=== PATIENT | female | born 1940 | race Caucasian/White ===

== ENCOUNTER → 2017-02-04 | Outpatient (CLI) | payer MEDICARE, BC ==
--- NOTE | 2017-02-04 12:44 | ECHOF ---
Referral Reason:I50.9 Congestive Heart Failure, R60.0 Edema MEASUREMENTS -------- HEIGHT: 165.1 cm WEIGHT: 98.0 kg BP: IVSd: 1.3 cm (0.6 - 1.1) LVIDd: 4.9 cm (3.9 - 5.3) LVPWd: 1.2 cm (0.6 - 1.1) IVSs: 1.4 cm LVIDs: 3.7 cm LVPWs: 1.4 cm LA Diam: 4.1 cm (2.7 - 3.8) LAESV Index (A-L): 20.04 ml/m Ao Diam: 3.0 cm (2.0 - 3.7) AV Cusp: 1.7 cm (1.5 - 2.6) LA Diam: 4.3 cm (2.7 - 3.8) MV EXCURSION: 18.742 mm (> 18.000) MV EF SLOPE: 75 mm/s (70 - 150) EPSS: 0.3 cm MV E Jarad: 0.51 m/s MV A Jarad: 0.91 m/s MV E/A Ratio: 0.55 FINDINGS -------- Sinus rhythm. This was a technically adequate study. There is mild concentric left ventricular hypertrophy. Overall left ventricular systolic function is normal with, an EF between 55 - 60 %. The right ventricle is normal in size. The left atrial size is normal. The right atrial size is normal. There is mild aortic valve sclerosis. There is no evidence of aortic regurgitation. Mild mitral annular calcification present. Mild mitral regurgitation is present. Mild tricuspid regurgitation present. There is no evidence of pulmonary hypertension. The right ventricular systolic pressure, as measured by Doppler, is {RVSP}. There is no pulmonic regurgitation present. The aortic root size is normal. There is no pericardial effusion. CONCLUSIONS -------- 1. Overall left ventricular systolic function is normal with, an EF between 55 - 60 %. 2. Mild mitral annular calcification present. 3. Mild mitral regurgitation is present. 4. Mild tricuspid regurgitation present. 5. There is no evidence of pulmonary hypertension. 6. The right ventricular systolic pressure, as measured by Doppler, is {RVSP}. SAFETY AND SECURITY MANAGER: Hallie Ayala RDCS
== END | disposition home or self-care (01) ==
LOC: RADECHMAIN 08:16
PROVIDERS: ATTEND Internal Medicine
DX: I08.1 Rheumatic disorders of both mitral and tricuspid valves (principal); I50.9 Heart failure, unspecified
CPT/HCPCS: 93306

== ENCOUNTER → 2018-10-28 | Outpatient (CLI) | payer MEDICARE, BC ==
[2018-10-28 08:11] LABS: HCT 41.8 % (34.0-46.0); HGB 13.5 gm/dL (11.4-16.0); MCH 28.8 pg (25.0-35.0); MCHC 32.4 g/dL (31.0-37.0); MCV 88.9 fL (80.0-100.0); Mean Platelet Volume 6.6; Platelet Count 213 k/uL (150-450); RDW 14.5 % (11.5-15.5); WBC 8.7 k/uL (3.8-10.6)
[2018-10-28 08:21] LABS: Albumin 4.2 g/dL (3.5-5.0); Calcium 9.2 mg/dL (8.4-10.2); Potassium 4.3 mmol/L (3.5-5.1); Total Bilirubin 0.8 mg/dL (0.2-1.3); Total Protein 7.3 g/dL (6.3-8.2)
--- NOTE | 2018-10-28 09:26 | BD ---
EXAMINATION TYPE: Axial Bone Density DATE OF EXAM: 10/28/2018 COMPARISON: NONE CLINICAL HISTORY: Height: 5 FT 3 IN Weight: 210 FRAX RISK QUESTIONS: RISK FACTORS HISTORY OF: Surgery to Spine/Hip(right/left)/Wrist (right/left): NEHEMIAH HIP REPLACEMENTS When: APPROX 4/5 YEARS AGO Active: YES Postmenopausal woman: AGE 49 Lost more than 2 inches in height since high school: YES MEDICATIONS: Additional Medications: LASIX, TOVIAZ Additional History: EXAM MEASUREMENTS: Bone mineral densitometry was performed using the Aereo System. Bone mineral density as measured about the Lumbar spine is: ----- L1-L4(G/cm2): 1.421 T Score Values are as follows: ----- L2: 1.7 ----- L3: 2.6 ----- L4: 3.9 ----- L1-L4: 2.0 Bone mineral density has: INCREASED 9.1 % since study of: 2012 mineral density has: % since study of: Bone mineral density about the L Wrist (g/cm2): 0.681 T Score values are as follows: -----Dist. R+U: 0.3 -----Prox. R+U: 0.1 -----Radius total: 0.1 NO COMPARISON STUDY IMPRESSION: Normal (Values between +1 and -1 indicate normal bone mass). Consider repeating this study in 5 year s or sooner if there is some new clinical indication. NOTE: T-SCORE=SD OF THE YOUNG ADULT MEAN.
--- NOTE | 2018-10-29 10:05 | MM ---
Reason for exam: screening (asymptomatic). Last mammogram was performed 5 years and 4 months ago. History: Patient is postmenopausal. Physical Findings: A clinical breast exam by your physician is recommended on an annual basis and results should be correlated with mammographic findings. MG Screening Mammo w CAD Bilateral CC and MLO view(s) were taken. Prior study comparison: July 07, 2013, bilateral digital screening mammo w/CAD. May 26, 2012, bilateral digital screening mammo w/CAD. There are scattered fibroglandular densities. There is no discrete abnormality. No significant changes when compared with prior studies. ASSESSMENT: Negative, BI-RAD 1 RECOMMENDATION: Routine screening mammogram of both breasts in 1 year.
== END ==
LOC: RADMAMWWP 06:57
PROVIDERS: ATTEND Internal Medicine
DX: Z12.31 Encounter for screening mammogram for malignant neoplasm of breast (principal); Z78.0 Asymptomatic menopausal state
CPT/HCPCS: 77067; 77080; 80053; 80061; 84443; 85027

== ENCOUNTER → 2019-01-20 | Outpatient (CLI) | payer MEDICARE, BC ==
[~2019-01-20] MED LIST: DOBUTamine DRIP for NUC MED 500 MG in DEXTROSE/WATER 1 250ML.BAG IV ONE
--- NOTE | 2019-01-20 13:03 | P.STRESS ---
- Stress Test Note Stress Test Results/Findings: Exam Performed: dobutamine stress echo Exam Date: 01/20/19 Reason for Exam: SOB / VALVE DISORDER Height: 5 ft 6 in Weight: 95.254 kg Protocol: DSE Stage: 3 Duration of Exercise: 7:45 Resting Heart Rate: 63 Resting Blood Pressure: 110/57 Maximum Achieved Heart Rate: 126 Maximum Achieved Blood Pressure: 139/52 85% PMHR: 122 100% PMHR: 143 METS: NA Technologist Comment: Stress Test Results/Findings: This is a 78-year-old female with history of diabetes and hypercholesterolemia being evaluated for cardiac status. Stress data: Baseline EKG showed sinus rhythm with a normal FL interval and QRS duration. Blood pressure at rest is 110/57 with pulse rate of 63. Patient walked on the Luis Alfredo protocol for 7 minutes and 45 seconds achieving a maximal heart rate of 126 with a blood pressure of 97/43. EKGs taken during exercise showed about [address] segments in the inferolateral leads. Patient had occasional PVCs. Patient did not experience any chest pain. Echo data: Baseline echo images show normal wall motion and thickening. Exercise echo images with a dobutamine showed progressive augmentation of wall motion and thickening. Final impression: #1. Borderline positive stress test, based on EKG changes. Patient did not express any chest pain #2. Negative dobutamine stress echo
--- NOTE | 2019-01-21 09:24 | ECHOS ---
Stress Test Results/Findings: Exam Performed: dobutamine stress echo Exam Date: 01/20/19 Reason for Exam: SOB / VALVE DISORDER Height: 5 ft 6 in Weight: 95.254 kg Protocol: DSE Stage: 3 Duration of Exercise: 7:45 Resting Heart Rate: 63 Resting Blood Pressure: 110/57 Maximum Achieved Heart Rate: 126 Maximum Achieved Blood Pressure: 139/52 85% PMHR: 122 100% PMHR: 143 METS: NA Technologist Comment: Stress Test Results/Findings: This is a 78-year-old female with history of diabetes and hypercholesterolemia being evaluated for cardiac status. Stress data: Baseline EKG showed sinus rhythm with a normal [place] interval and QRS duration. Blood pressure at rest is 110/57 with pulse rate of 63. Patient walked on the Luis Alfredo protocol for 7 minutes and 45 seconds achieving a maximal heart rate of 126 with a blood pressure of 97/43. EKGs taken during exercise showed about [address] segments in the inferolateral leads. Patient had occasional PVCs. Patient did not experience any chest pain. Echo data: Baseline echo images show normal wall motion and thickening. Exercise echo images with a dobutamine showed progressive augmentation of wall motion and thickening. Final impression: #1. Borderline positive stress test, based on EKG changes. Patient did not express any chest pain #2. Negative dobutamine stress echo MTDD
== END | disposition home or self-care (01) ==
LOC: RADNMMAIN 08:47
PROVIDERS: ATTEND Internal Medicine
DX: I35.8 Other nonrheumatic aortic valve disorders (principal); I50.9 Heart failure, unspecified
CPT/HCPCS: 93351; J1250

== ENCOUNTER 2021-07-19 21:43 | Emergency (ER) | payer MEDICARE, BC ==
[2021-07-19] MEDS ORDERED: SODIUM CHLORIDE 0.9% 1,000 ML IV STA (22:48)
--- NOTE | 2021-07-19 22:49 | ED ---
Recheck HPI - General Chief Complaint: Recheck/Abnormal Lab/Rx Stated Complaint: Irregular lab-Sent in by Dr. Molina Time Seen by Provider: 07/19/21 22:48 Source: patient, RN notes reviewed, old records reviewed Mode of arrival: ambulatory Limitations: no limitations - History of Present Illness Initial Comments: This is a 80-year-old female to the emergency department today. Patient presents today for evaluation regards to abnormal outpatient lab value. Patient was told her troponin was elevated. Patient is asymptomatic, lab values were found on routine lab testing on checkup exam. Again patient has no complaints. A she just has a history of high blood pressure no history of heart disease MD Complaint: abnormal lab (Elevated troponin) -: unknown Returns Today for: Called Because of Abnormal Lab/Test Symptoms Since Prior Visit: no new symptoms Context: called for abnormal lab result Associated Symptoms: none Treatments Prior to Arrival: other (none) - Related Data Home Medications Medication Instructions Recorded Confirmed Fesoterodine Fumarate [Toviaz] 8 mg PO DAILY 02/27/14 07/19/21 Furosemide [Lasix] 20 mg PO DAILY 07/19/21 07/19/21 Allergies Allergy/AdvReac Type Severity Reaction Status Date / Time No Known Allergies Allergy Verified 07/19/21 23:34 Review of Systems ROS Statement: Those systems with pertinent positive or pertinent negative responses have been documented in the HPI. ROS Other: All systems not noted in ROS Statement are negative. Past Medical History Past Medical History: Hyperlipidemia, Osteoarthritis (OA) Additional Past Medical History / Comment(s): OAB History of Any Multi-Drug Resistant Organisms: MRSA Date of last positivie culture/infection: 2015 MDRO Source:: R leg Past Surgical History: Joint Replacement Additional Past Surgical History / Comment(s): fallopian tube surg., Right & Lef t hip replaced Past Anesthesia/Blood Transfusion Reactions: Postoperative Nausea & Vomiting (PONV) Past Psychological History: No Psychological Hx Reported Smoking Status: Never smoker Past Alcohol Use History: None Reported Past Drug Use History: None Reported - Past Family History Mother Family Medical History: Cancer Additional Family Medical History / Comment(s): lung Father Family Medical History: Cancer Additional Family Medical History / Comment(s): liver General Exam Limitations: no limitations General appearance: alert, in no apparent distress Head exam: Present: atraumatic, normocephalic, normal inspection Eye exam: Present: normal appearance, PERRL, EOMI. Absent: scleral icterus, conjunctival injection, periorbital swelling ENT exam: Present: normal exam, mucous membranes moist Neck exam: Present: normal inspection. Absent: tenderness, meningismus, lymphadenopathy Respiratory exam: Present: normal lung sounds bilaterally. Absent: respiratory distress, wheezes, rales, rhonchi, stridor Cardiovascular Exam: Present: regular rate, normal rhythm, normal heart sounds. Absent: systolic murmur, diastolic murmur, rubs, gallop, clicks GI/Abdominal exam: Present: soft, normal bowel sounds. Absent: distended, tenderness, guarding, rebound, rigid Extremities exam: Present: normal inspection, full ROM, normal capillary refill. Absent: tenderness, pedal edema, joint swelling, calf tenderness Back exam: Present: normal inspection Neurological exam: Present: alert, oriented X3, CN II-XII intact Psychiatric exam: Present: normal affect, normal mood Skin exam: Present: warm, dry, intact, normal color. Absent: rash Course Vital Signs 07/19/21 07/19/21 22:05 23:42 Temperature 98.6 F Pulse Rate 84 87 Respiratory 18 16 Rate Blood Pressure 175/88 167/83 O2 Sat by Pulse 96 96 Oximetry - Reevaluation(s) Reevaluation #1: 07/20/21 01:09 Medical record is reviewed Reevaluation #2: 07/20/21 01:09 Patient poor informed of improving her normalizing lab value Reevaluation #3: 07/20/21 01:09 Patient remains asymptomatic with no chest pain. Reevaluation #4: 07/20/21 01:09 Patient will prefer discharged home Medical Decision Making - Medical Decision Making 80 female to evaluate elevated troponin patient report is normal here in the emergency department was not certainly elevated on the outpatient basis patient is a symptomatically no chest pain. This was routine lab work and patient can be discharged home - Lab Data Result diagrams: 07/19/21 22:56 07/19/21 22:56 Lab Results 07/19/21 07/19/21 07/19/21 Range/Units 22:56 22:56 22:56 WBC 8.3 (3.8-10.6) k/uL RBC 4.80 (3.80-5.40) m/uL Hgb 13.5 (11.4-16.0) gm/dL Hct 42.5 (34.0-46.0) % MCV 88.6 (80.0-100.0) fL MCH 28.1 (25.0-35.0) pg MCHC 31.7 (31.0-37.0) g/dL RDW 14.2 (11.5-15.5) % Plt Count 209 (150-450) k/uL MPV 7.2 Neutrophils % 69 % Lymphocytes % 20 % Monocytes % 5 % Eosinophils % 4 % Basophils % 1 % Neutrophils # 5.8 (1.3-7.7) k/uL Lymphocytes # 1.7 (1.0-4.8) k/uL Monocytes # 0.4 (0-1.0) k/uL Eosinophils # 0.3 (0-0.7) k/uL Basophils # 0.1 (0-0.2) k/uL PT 9.6 (9.0-12.0) sec INR 0.9 (<1.2) APTT 22.5 (22.0-30.0) sec Sodium 136 L (137-145) mmol/L Potassium 4.1 (3.5-5.1) mmol/L Chloride 105 (98-107) mmol/L Carbon Dioxide 23 (22-30) mmol/L Anion Gap 8 mmol/L BUN 16 (7-17) mg/dL Creatinine 0.59 (0.52-1.04) mg/dL Est GFR (CKD-EPI)AfAm >90 (>60 ml/min/1.73 sqM) Est GFR (CKD-EPI)NonAf 88 (>60 ml/min/1.73 sqM) Glucose 138 H (74-99) mg/dL Calcium 9.4 (8.4-10.2) mg/dL Magnesium 2.1 (1.6-2.3) mg/dL Total Bilirubin 0.4 (0.2-1.3) mg/dL AST 24 (14-36) U/L ALT 14 (4-34) U/L Alkaline Phosphatase 144 H (38-126) U/L Troponin I (0.000-0.034) ng/mL NT-Pro-B Natriuret Pep pg/mL Total Protein 7.3 (6.3-8.2) g/dL Albumin 4.1 (3.5-5.0) g/dL Lipase 81 (23-300) U/L 07/19/21 07/19/21 Range/Units 22:56 22:56 WBC (3.8-10.6) k/uL RBC (3.80-5.40) m/uL Hgb (11.4-16.0) gm/dL Hct (34.0-46.0) % MCV (80.0-100.0) fL MCH (25.0-35.0) pg MCHC (31.0-37.0) g/dL RDW (11.5-15.5) % Plt Count (150-450) k/uL MPV Neutrophils % % Lymphocytes % % Monocytes % % Eosinophils % % Basophils % % Neutrophils # (1.3-7.7) k/uL Lymphocytes # (1.0-4.8) k/uL Monocytes # (0-1.0) k/uL Eosinophils # (0-0.7) k/uL Basophils # (0-0.2) k/uL PT (9.0-12.0) sec INR (<1.2) APTT (22.0-30.0) sec Sodium (137-145) mmol/L Potassium (3.5-5.1) mmol/L Chloride (98-107) mmol/L Carbon Dioxide (22-30) mmol/L Anion Gap mmol/L BUN (7-17) mg/dL Creatinine (0.52-1.04) mg/dL Est GFR (CKD-EPI)AfAm (>60 ml/min/1.73 sqM) Est GFR (CKD-EPI)NonAf (>60 ml/min/1.73 sqM) Glucose (74-99) mg/dL Calcium (8.4-10.2) mg/dL Magnesium (1.6-2.3) mg/dL Total Bilirubin (0.2-1.3) mg/dL AST (14-36) U/L ALT (4-34) U/L Alkaline Phosphatase (38-126) U/L Troponin I 0.025 (0.000-0.034) ng/mL NT-Pro-B Natriuret Pep 95 pg/mL Total Protein (6.3-8.2) g/dL Albumin (3.5-5.0) g/dL Lipase (23-300) U/L - EKG Data -: EKG Interpreted by Me (EKG shows sinus rhythm 76 AR 178 QRS 86 QTc 460) - Radiology Data Radiology results: report reviewed (Chest x-rays negative for acute disease), image reviewed Disposition Clinical Impression: Normal exam Disposition: HOME SELF-CARE Condition: Good Instructions (If sedation given, give patient instructions): Normal Exam (ED) Is patient prescribed a controlled substance at d/c from ED?: No Referrals: Rosa Molina MD [Primary Care Provider] - 1-2 days
--- NOTE | 2021-07-19 23:16 | XR ---
EXAMINATION TYPE: XR chest 1V portable DATE OF EXAM: 07/19/2021 COMPARISON: 03/02/2014 HISTORY: Chest pain TECHNIQUE: Single view FINDINGS: There is no heart failure nor confluent pneumonic infiltrate. Costophrenic angles are clear . There are chest leads. Bony thorax is intact. IMPRESSION: No active cardiopulmonary disease. No adverse change
[2021-07-19 23:40] LABS: Basophils # (A) 0.1 k/uL (0-0.2); Basophils % (A) 1 %; Eosinophils # (A) 0.3 k/uL (0-0.7); Eosinophils % (A) 4 %; HCT 42.5 % (34.0-46.0); HGB 13.5 gm/dL (11.4-16.0); Lymphocytes # (A) 1.7 k/uL (1.0-4.8); Lymphocytes % (A) 20 %; MCH 28.1 pg (25.0-35.0); MCHC 31.7 g/dL (31.0-37.0); MCV 88.6 fL (80.0-100.0); Mean Platelet Volume 7.2; Monocytes # (A) 0.4 k/uL (0-1.0); Monocytes % (A) 5 %; Neutrophils # (A) 5.8 k/uL (1.3-7.7); Neutrophils % (A) 69 %; Platelet Count 209 k/uL (150-450); RDW 14.2 % (11.5-15.5); WBC 8.3 k/uL (3.8-10.6)
[2021-07-19 23:44] LABS: INR 0.9 (<1.2); Partial Thromboplastin Time 22.5 sec (22.0-30.0); Prothrombin Time 9.6 sec (9.0-12.0)
[2021-07-20 00:04] LABS: ALT 14 U/L (4-34); AST 24 U/L (14-36); African American GFR (CKD) >90 (>60 ml/min/1.73 sqM); Albumin 4.1 g/dL (3.5-5.0); Alkaline Phosphatase 144 U/L (38-126); Anion Gap 8 mmol/L; Blood Urea Nitrogen 16 mg/dL (7-17); Calcium 9.4 mg/dL (8.4-10.2); Carbon Dioxide 23 mmol/L (22-30); Chloride 105 mmol/L (98-107); Glucose 138 mg/dL (74-99); Lipase 81 U/L (23-300); Magnesium 2.1 mg/dL (1.6-2.3); Non-African American GFR(CKD) 88 (>60 ml/min/1.73 sqM); Potassium 4.1 mmol/L (3.5-5.1); Sodium 136 mmol/L (137-145); Total Bilirubin 0.4 mg/dL (0.2-1.3); Total Protein 7.3 g/dL (6.3-8.2)
[2021-07-20 04:54] VITALS: BP 178/90; PULSE 76; RESP 18; TEMP 98
== END 2021-07-20 01:43 | disposition home or self-care (01) ==
LOC: EC 21:43
DX: Z00.00 Encounter for general adult medical examination without abnormal findings (principal); E78.5 Hyperlipidemia, unspecified; M19.90 Unspecified osteoarthritis, unspecified site; Z79.899 Other long term (current) drug therapy
CPT/HCPCS: 36415; 71045; 80053; 83690; 83735; 83880; 84484; 85025; 85610; 85730; 93005; 96360; 96361; 99284

== ENCOUNTER → 2021-07-22 | Outpatient (CLI) | payer MEDICARE, BC ==
--- NOTE | 2021-07-23 03:54 | MR ---
EXAMINATION TYPE: MR angio head wo/neck wo/w con DATE OF EXAM: 07/22/2021 COMPARISON: None HISTORY: Abnormal CT scan. CONTRAST: Standard multiplanar, multisequence MRI departmental protocol utilizing 9.5 mL intravenous gadolinium contrast. MR angiographic images were obtained of the brain. There is arterial flow in the anterior middle and posterior cerebral arteries bilaterally. There is n o mass effect. There is some short segment stenosis in the proximal right middle cerebral artery. The re is probably 50% luminal narrowing. There is arterial flow in the vertebrobasilar artery system. Th ere is bilateral arterial flow in the posterior communicating arteries. Posterior cerebral arteries a ppear to fill mostly through the posterior communicating arteries. I see no evidence of intracranial aneurysm. There is no evidence of neovascularity. There is arterial flow in both common carotid arteries. There is subtotal occlusion of the proximal l eft external carotid artery. There is approximate 50% stenosis of the origin of the right external ca rotid artery. There is normal branching pattern of the great vessels on the aortic arch. I see no yo dence of hemodynamic stenosis of the internal carotid arteries. There is bilateral arterial flow in t he vertebral arteries. No evidence of any significant stenosis. 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 There is more than 50% stenosis origin of the right external carotid artery. There is focal stenosis in the right middle cerebral artery of approximately 50%.
--- NOTE | 2021-07-23 04:21 | MR ---
EXAMINATION TYPE: MR brain wo con DATE OF EXAM: 07/22/2021 COMPARISON: None HISTORY: Weakness Multiplanar multiecho imaging of the brain without contrast. There is cerebral cortical atrophy. There is no mass effect nor midline shift. There is no sign of in tracranial hemorrhage. There are multiple scattered white matter high signal foci of increased signal on the T2 and FLAIR images in both cerebral hemispheres. Total number is approximately 15. The large st measures 7 mm in the oleary-white matter junction left parietal lobe. There are multiple somewhat co alescent small foci in the anterior right internal capsule. Ventricles are not enlarged. The brainste m shows small areas of slight increased signal in the urban measuring up to 4 mm. Cerebellum is intact . Corpus callosum is intact. Sella turcica is normal. There is no evidence of orbital mass. Diffusion images do not show evidence of an acute infarct. IMPRESSION: Multiple white matter high signal foci as above could relate to chronic small vessel ischemia or demy elinating disease. No evidence of an acute infarct. No evidence of cerebral cortical infarct.
== END | disposition home or self-care (01) ==
LOC: RADMRIMAIN 21:09
PROVIDERS: ATTEND Family Medicine
DX: I65.23 Occlusion and stenosis of bilateral carotid arteries (principal); I66.01 Occlusion and stenosis of right middle cerebral artery; R93.0 Abnormal findings on diagnostic imaging of skull and head, not elsewhere classified
CPT/HCPCS: 70544; 70549; 70551; A9585

== ENCOUNTER → 2021-07-22 | Outpatient (CLI) | payer MEDICARE, BC ==
--- NOTE | 2021-07-22 08:30 | CT ---
EXAMINATION TYPE: CT brain wo con DATE OF EXAM: 07/22/2021 COMPARISON: None INDICATION: Lt Hand numbness tingling DLP: 1036.00 mGycm, Automated exposure control for dose reduction was used. CONTRAST: None CT of the brain is performed utilizing 3 mm thick sections through the posterior fossa and 3 mm thick sections through the remaining calvarium. Study is performed within 24 hours of arrival to the hosp ital. No abnormal hyperdensity is present to suggest an acute intracranial hemorrhage. No mass lesion is evident. There is some subtle anterior internal capsule and right basal ganglia hypodensity could be a develop ing lacunar infarct. Some subtle hypodensity may be within the anterior left basal ganglia as well. M ild mass effect on the anterior horn right lateral ventricle is not excluded. Ventricles and sulci are appropriate for the patient age. Paranasal sinuses and mastoid air cells within the [id number] are clear. Hyperostosis frontalis internus, normal variant, is present. IMPRESSIONS: 1. There is a hypodensity within the right anterior internal limb of the basal ganglia. Developing lacunar infarct could be considered. Consider MRI without contrast for additional evaluation. 2. Some subtle hypodensity may be present within the anterior lateral left basal ganglia.
--- NOTE | 2021-07-22 08:40 | US ---
EXAMINATION TYPE: US carotid duplex BILAT DATE OF EXAM: 07/22/2021 COMPARISON: NONE CLINICAL HISTORY: R09.89 Bruit. EXAM MEASUREMENTS: RIGHT: Peak Systolic Velocity (PSV) cm/sec ----- Right CCA: 118.6 ----- Right ICA: 120.0 ----- Right ECA: 224.7 ICA/CCA ratio: 1.0 RIGHT: End Diastole cm/sec ----- Right CCA: 35.7 ----- Right ICA: 34.3 ----- Right ECA: 21.2 LEFT: Peak Systolic Velocity (PSV) cm/sec ----- Left CCA: 88.7 ----- Left ICA: 75.5 ----- Left ECA: 99.5 ICA/CCA ratio: 0.9 LEFT: End Diastole cm/sec ----- Left CCA: 26.0 ----- Left ICA: 28.2 ----- Left ECA: 0.0 VERTEBRALS (direction of flow): Right Vertebral: Antegrade Left Vertebral: Antegrade Rhythm: Arrhythmia, on the right side. Grayscale, color Doppler, spectral Doppler imaging performed the carotid arteries. Waveform analysis does not show significant stenosis of the internal carotid arteries, mild elevation of the peak systo lic velocity is noted in the internal carotid artery in the left without elevated ICA to CCA ratio. E levated right ECA, tortuous left ICA. No significant stenosis. IMPRESSION: Mild elevation of the peak systolic velocity within the proximal internal carotid artery in the left not felt likely to represent hemodynamic significant stenosis by Doppler criteria, an in direct measurement of carotid stenosis. CTA or MRA of the carotid arteries could be performed for add itional evaluation as indicated Criteria for Assigning % of Stenosis / Diameter reduction (Estimation based on the indirect measurements of the internal carotid artery velocities (ICA PSV). 1. Normal (no stenosis)=ICA PSV < 125 cm/s: ratio < 2.0: ICA EDV<40 cm/s. 2. Less than 50% stenosis=ICA PSV < 125 cm/s: ratio < 2.0: ICA EDV<40 cm/s. 3. 50 to 69% stenosis=ICA PSV of 125 to 230 cm/s: ration 2.0 ? 4.0: ICA EDV 40-100 cm/s. 4. Greater than 70% stenosis to near occlusion= ICA PSV > 230 cm/s: ratio > 4.0: ICA EDV > 100 cm/s. 5. Near occlusion= ICA PSV velocities may be low or undetectable: variable ratio and ICA EDV. 6. Total occlusion=unable to detect flow.
== END | disposition home or self-care (01) ==
LOC: RADCTMAIN 07:05
PROVIDERS: ATTEND Family Medicine
DX: R09.89 Other specified symptoms and signs involving the circulatory and respiratory systems (principal); R93.0 Abnormal findings on diagnostic imaging of skull and head, not elsewhere classified
CPT/HCPCS: 70450; 93880

== ENCOUNTER → 2021-09-12 | Outpatient (CLI) | payer MEDICARE, BC ==
--- NOTE | 2021-09-13 12:38 | MM ---
Reason for exam: screening (asymptomatic). Last mammogram was performed 2 years and 11 months ago. History: Patient is postmenopausal and history of other cancer. Physical Findings: A clinical breast exam by your physician is recommended on an annual basis and results should be correlated with mammographic findings. MG 3D Screening Mammo W/Cad Bilateral CC and MLO view(s) were taken. Prior study comparison: October 28, 2018, bilateral MG screening mammo w CAD. There are scattered fibroglandular densities. There are benign appearing round vascular calcifications bilaterally. There is no discrete abnormality. ASSESSMENT: Benign, BI-RAD 2 RECOMMENDATION: Routine screening mammogram of both breasts in 1 year.
== END | disposition home or self-care (01) ==
LOC: RADMAMWWP 09:13
PROVIDERS: ATTEND Family Medicine
DX: Z12.31 Encounter for screening mammogram for malignant neoplasm of breast (principal); Z78.0 Asymptomatic menopausal state
CPT/HCPCS: 77063; 77067

== ENCOUNTER 2021-09-16 23:13 | Emergency (ER) | payer MEDICARE, BC ==
[2021-09-17] MEDS ORDERED: SODIUM CHLORIDE 0.9% 50 ML IVPB ONE (00:45)
[2021-09-17 00:51] VITALS: RESP 18
[2021-09-17] MEDS ORDERED: BAMLANIVIMAB (EUA) 700 MG, ETESEVIMAB (EUA) 1,400 MG in SODIUM CHLORIDE 0.9% 50 ML IVPB ONE (01:00)
--- NOTE | 2021-09-17 02:03 | ED ---
General Adult HPI - General Chief complaint: Upper Respiratory Infection Stated complaint: covid exposure Time Seen by Provider: 09/17/21 00:33 Source: patient Mode of arrival: ambulatory Limitations: no limitations - History of Present Illness Initial comments: 80-year-old female patient presented to the emergency department today requesting test for COVID-19. States that her has tested positive and is hospitalized that she wanted to be tested. States she feels well. She has been vaccinated and did receive a booster at the beginning of this month. Patient denies any recent rash, fever, chills, cough, shortness of breath, chest pain, abdominal pain, nausea, vomiting, diarrhea, constipation, back pain, numbness, tingling, dizziness, weakness, hematuria, dysuria, urinary urgency, urinary frequency, headache, visual changes, or any other complaints. - Related Data Home Medications Medication Instructions Recorded Confirmed Fesoterodine Fumarate [Toviaz] 8 mg PO DAILY 02/27/14 07/19/21 Furosemide [Lasix] 20 mg PO DAILY 07/19/21 07/19/21 Allergies Allergy/AdvReac Type Severity Reaction Status Date / Time No Known Allergies Allergy Verified 09/16/21 23:19 Review of Systems ROS Statement: Those systems with pertinent positive or pertinent negative responses have been documented in the HPI. ROS Other: All systems not noted in ROS Statement are negative. Past Medical History Past Medical History: Hyperlipidemia, Osteoarthritis (OA) Additional Past Medical History / Comment(s): OAB History of Any Multi-Drug Resistant Organisms: MRSA Date of last positivie culture/infection: 2015 MDRO Source:: R leg Past Surgical History: Joint Replacement Additional Past Surgical History / Comment(s): fallopian tube surg., Right & Left hip replaced Past Anesthesia/Blood Transfusion Reactions: Postoperative Nausea & Vomiting (PONV) Past Psychological History: No Psychological Hx Reported Smoking Status: Never smoker Past Alcohol Use History: None Reported Past Drug Use History: None Reported - Past Family History Mother Family Medical History: Cancer Additional Family Medical History / Comment(s): lung Father Family Medical History: Cancer Additional Family Medical History / Comment(s): liver General Exam Limitations: no limitations General appearance: alert, in no apparent distress, other (This is a well- developed, well-nourished adult female in no acute distress.) Respiratory exam: Present: normal lung sounds bilaterally. Absent: respiratory distress, wheezes, rales, rhonchi, stridor Cardiovascular Exam: Present: regular rate, normal rhythm, normal heart sounds. Absent: systolic murmur, diastolic murmur, rubs, gallop, clicks GI/Abdominal exam: Present: soft, normal bowel sounds. Absent: distended, tenderness, guarding, rebound, rigid Neurological exam: Present: alert, oriented X3, CN II-XII intact Psychiatric exam: Present: normal affect, normal mood Skin exam: Present: warm, dry, intact, normal color. Absent: rash Course Vital Signs 09/16/21 09/17/21 09/17/21 23:19 00:48 02:46 Temperature 98.3 F 97.4 F L Pulse Rate 73 65 Respiratory 20 18 18 Rate Blood Pressure 180/81 151/87 O2 Sat by Pulse 97 97 Oximetry Medical Decision Making - Medical Decision Making 80-year-old female patient presented for COVID-19 test due to exposure. She is not having any symptoms. She did test positive. She did meet criteria to receive monoclonal antibodies. She agrees to receive this medication she tolerated without difficulty. She'll be discharged. The primary care physician for recheck in 1-2 days. Return parameters were discussed in detail. She verbalizes understanding and agrees with this plan. My attending is Dr. Justice. - Lab Data Lab Results 09/16/21 Range/Units 23:25 Coronavirus (PCR) Detected A (Not Detectd) Disposition Clinical Impression: COVID-19 Disposition: HOME SELF-CARE Condition: Good Instructions (If sedation given, give patient instructions): Coronavirus Disease 2019 (COVID-19) Additional Instructions: Tips to help you feel better: -Maintain adequate fluid intake - especially water. -Rest, you are healing your body will require extra sleep. -Eat even if you do not feel like it - broth, jello, toast are fine if you cannot eat full meals. -Take tylenol and motrin alternating (if you have no allergies or have not been instructed to avoid these medications) to help with body aches and fevers. -Obtain over the counter vitamin C, zinc, and vitamin D3. -Take medications as prescribed. Follow-up with your primary care physician for recheck in 1-2 days. Return for any new, worsening, or concerning symptoms. Is patient prescribed a controlled substance at d/c from ED?: No Referrals: Rosa Molina MD [Primary Care Provider] - 1-2 days Time of Disposition: 02:30
[2021-09-17] MEDS ORDERED: HYDROcodone/APAP 5-325MG 1 EACH TAB PO STA (02:21)
[2021-09-17 02:48] VITALS: BP 151/87; PULSE 65; TEMP 97.4
== END 2021-09-17 02:47 | disposition home or self-care (01) ==
LOC: EC 23:13
DX: U07.1 COVID-19 (principal); E78.5 Hyperlipidemia, unspecified; M19.90 Unspecified osteoarthritis, unspecified site
CPT/HCPCS: 87635; 99282; 96360; J3490

== ENCOUNTER → 2022-06-27 | Outpatient (CLI) | payer MEDICARE, BC ==
--- NOTE | 2022-06-27 11:40 | US ---
EXAMINATION TYPE: US carotid duplex BILAT DATE OF EXAM: 06/27/2022 COMPARISON: NONE CLINICAL HISTORY: I65.23 bilateral carotid artery stenosis. stenosis TECHNIQUE: Carotid duplex ultrasound examination. Indirect Doppler criteria was utilized. FINDINGS: EXAM MEASUREMENTS: RIGHT: Peak Systolic Velocity (PSV) cm/sec ----- Right CCA: 124 ----- Right ICA: 125 ----- Right ECA: 275 ICA/CCA ratio: 1.01 RIGHT: End Diastole cm/sec ----- Right CCA: 27.3 ----- Right ICA: 27.9 ----- Right ECA: 11.5 LEFT: Peak Systolic Velocity (PSV) cm/sec ----- Left CCA: 87.7 ----- Left ICA: 141 ----- Left ECA: 127 ICA/CCA ratio: 1.61 LEFT: End Diastole cm/sec ----- Left CCA: 15.1 ----- Left ICA: 35.9 ----- Left ECA: 0.0 VERTEBRALS (direction of flow): Right Vertebral: Antegrade Left Vertebral: Antegrade SPEECH PROFESSOR NOTES: Moderate plaque bilateral bifurcations. Increased velocities right ECA. Tortuous l eft ICA IMPRESSION: No evidence for hemodynamically significant stenosis Criteria for Assigning % of Stenosis / Diameter reduction (Estimation based on the indirect measurements of the internal carotid artery velocities (ICA PSV). 1. Normal (no stenosis)=ICA PSV < 125 cm/s: ratio < 2.0: ICA EDV<40 cm/s. 2. Less than 50% stenosis=ICA PSV < 125 cm/s: ratio < 2.0: ICA EDV<40 cm/s. 3. 50 to 69% stenosis=ICA PSV of 125 to 230 cm/s: ration 2.0 ? 4.0: ICA EDV 40-100 cm/s. 4. Greater than 70% stenosis to near occlusion= ICA PSV > 230 cm/s: ratio > 4.0: ICA EDV > 100 cm/s. 5. Near occlusion= ICA PSV velocities may be low or undetectable: variable ratio and ICA EDV. 6. Total occlusion=unable to detect flow.
[2022-06-27 11:43] LABS: Basophils % (A) 1 %; Eosinophils # (A) 0.2 k/uL (0-0.7); Eosinophils % (A) 3 %; HCT 39.8 % (34.0-46.0); HGB 12.7 gm/dL (11.4-16.0); Hypochromasia Moderate; Lymphocytes # (A) 1.4 k/uL (1.0-4.8); Lymphocytes % (A) 21 %; MCH 28.2 pg (25.0-35.0); MCHC 31.8 g/dL (31.0-37.0); MCV 88.7 fL (80.0-100.0); Monocytes # (A) 0.3 k/uL (0-1.0); Monocytes % (A) 5 %; Neutrophils # (A) 4.6 k/uL (1.3-7.7); Neutrophils % (A) 70 %; Platelet Count 204 k/uL (150-450); RBC 4.48 m/uL (3.80-5.40); RDW 14.6 % (11.5-15.5); WBC 6.5 k/uL (3.8-10.6)
[2022-06-27 17:47] LABS: Protein, Total 6.3 g/dL (6.2-8.2)
[2022-06-27 18:16] LABS: ALT 24 U/L (8-44); AST 18 U/L (13-35); Albumin 4.1 g/dL (3.8-4.9); Albumin/Globulin Ratio 1.95 (1.60-3.17); Alkaline Phosphatase 121 U/L (41-126); BUN/Creat Ratio 13.89 Ratio (12.00-20.00); Blood Urea Nitrogen 12.5 mg/dL (9.0-27.0); Calcium 9.1 mg/dL (8.7-10.3); Carbon Dioxide 28.7 mmol/L (20.0-27.5); Chloride 104 mmol/L (96-109); Globulin 2.1 g/dL (1.6-3.3); Glucose 110 mg/dL (70-110); Iron 49 ug/dL (50-170); Non-African American GFR(CKD) 60.4 (60.0-200.0); Potassium 4.8 mmol/L (3.5-5.5); Sodium 141 mmol/L (135-145); Total Protein 6.2 g/dL (6.2-8.2)
[2022-06-27 18:17] LABS: % Iron Saturation 14.68 (12.00-45.00); Chol/HDL Ratio 3.73 Ratio; LDL Cholesterol,Calculated 103.8 mg/dL (0.0-131.0); Total Iron Binding Capacity 332 ug/dL (228-460); VLDL Calculation 17.74 mg/dL (5.00-40.00)
[2022-06-30 12:02] LABS: Albumin 3.62 g/dL (3.80-4.90); Gamma Globulin 0.72 g/dL (0.70-1.50)
== END | disposition home or self-care (01) ==
LOC: RADUSWWP 10:45
PROVIDERS: ATTEND Internal Medicine
DX: I65.23 Occlusion and stenosis of bilateral carotid arteries (principal)
CPT/HCPCS: 80053; 80061; 82607; 82746; 83540; 83550; 84165; 84443; 85025; 93880

== ENCOUNTER → 2022-12-19 | Outpatient (CLI) | payer MEDICARE, BC ==
--- NOTE | 2022-12-19 14:28 | CT ---
EXAMINATION TYPE: CT angio abdomen pelvis CT DLP: 2180.1 mGycm, Automated exposure control for dose reduction was used. DATE OF EXAM: 12/19/2022 2:12 PM COMPARISON: Ultrasound duplex aorta 11/26/2022. CLINICAL INDICATION:Female, 82 years old with history of I71.40; Follow up for abdominal aortic aneur ysm. TECHNIQUE: Multiple thin slice sub-millimeter images were obtained through the abdomen and pelvis bef ore and after administration of contrast. Patient was given Isovue 370, 100 cc intravenously. 3-D r econstructed images and maximum intensity projection images were obtained of the aorta. FINDINGS: CTA Abdomen and pelvis: Postsurgical changes from aortobiiliac stent graft which is patent. The nativ e aneurysm sac measures 7.9 x 6.9 cm in TV and AP dimensions. Atherosclerotic plaquing is identified within the abdominal aorta. No evidence for intramural hematoma or dissection. The origins of the jones perior mesenteric artery, renal arteries, inferior mesenteric artery, and celiac axis are patent. Mi ld narrowing at the origin of the SMA and bilateral single renal arteries. The iliac vessels are norm al in morphology. Atherosclerotic plaquing with some mural thrombus formation is identified in the c ommon iliac arteries. VISCERA: The liver, spleen, adrenal glands, kidneys, pancreas, and gallbladder are not optimally enha nced due the arterial phase utilized. LIVER: Unremarkable GALLBLADDER AND BILE DUCTS: Unremarkable. PANCREAS: Unremarkable. SPLEEN: Unremarkable. ADRENAL GLANDS: Unremarkable. KIDNEYS AND URETERS: No evidence of hydronephrosis or renal calculus. The kidneys enhance symmetrical ly without suspicious focal lesion. PELVIS BLADDER: Limited evaluation due to streak artifact from hip prosthesis. REPRODUCTIVE: Limited evaluation due to streak artifact from hip prosthesis. ABDOMEN & PELVIS STOMACH AND BOWEL: Stomach and duodenum are unremarkable. No evidence of bowel obstruction. PERITONEUM: No evidence of pneumoperitoneum or free fluid. VASCULATURE: No evidence of aortic aneurysm. MUSCULOSKELETAL: No acute osseous abnormalities. Postsurgical changes from bilateral total hip arthro plasty. Mild multilevel degenerative disc disease. No aggressive osseous lesion. Nonspecific cystic-a ppearing lesion measuring 4.5 x 1.5 cm along the superior aspect of the left iliopsoas muscle (series 8, image 84). No definitive enhancement identified. LYMPH NODES: No gross evidence for lymphadenopathy. SOFT TISSUE/ABDOMINAL WALL: Small fat filled umbilical hernia. LOWER CHEST: Scattered pulmonary nodules within the visualized bilateral lower lobes with example inc luding a right lower lung 8 mm pulmonary nodule (series 4, image 13). A left lower lobe 3 mm pulmonar y nodule (series 4, image 5). Mild cardiomegaly. Moderate to severe coronary arterial calcifications. No pericardial effusion. Aortic valvular and mitral annulus calcifications. IMPRESSION 1. Postsurgical changes from aortobiiliac stent graft transversing an infrarenal abdominal aortic ane urysm measuring 7.9 x 6.9 cm. No evidence for endoleak. 2. Nonspecific cystic appearing lesion just superior to the left iliopsoas muscle. This could represe nt a lymphangioma. Correlation with prior imaging is recommended. Otherwise attention on follow-up. 3. Several scattered pulmonary nodules measuring up to [address] chest is recommended.
== END | disposition home or self-care (01) ==
LOC: RADCTMAIN 13:00
PROVIDERS: ATTEND Surgery Vascular Surgery
DX: I71.43 Infrarenal abdominal aortic aneurysm, without rupture (principal); R91.8 Other nonspecific abnormal finding of lung field
CPT/HCPCS: 36415; 74174; Q9967

== ENCOUNTER 2023-03-31 16:35 | Emergency (ER) | payer MEDICARE, BC ==
[2023-03-31 16:49] VITALS: TEMP 98.2
[2023-03-31] MEDS ORDERED: SODIUM CHLORIDE 0.9% 1,000 ML IV ONE (16:50)
[2023-03-31 17:20] LABS: Basophils % (A) 0 %; Eosinophils # (A) 0.2 k/uL (0-0.7); Eosinophils % (A) 2 %; HCT 36.5 % (34.0-46.0); HGB 11.8 gm/dL (11.4-16.0); Hypochromasia Slight; Lymphocytes # (A) 1.4 k/uL (1.0-4.8); Lymphocytes % (A) 17 %; MCH 28.3 pg (25.0-35.0); MCHC 32.5 g/dL (31.0-37.0); MCV 87.1 fL (80.0-100.0); Mean Platelet Volume 7.3; Monocytes # (A) 0.4 k/uL (0-1.0); Monocytes % (A) 4 %; Neutrophils # (A) 6.4 k/uL (1.3-7.7); Neutrophils % (A) 75 %; Platelet Count 164 k/uL (150-450); RBC 4.19 m/uL (3.80-5.40); RDW 15.7 % (11.5-15.5); WBC 8.5 k/uL (3.8-10.6)
[2023-03-31 17:29] LABS: Partial Thromboplastin Time 22.3 sec (22.0-30.0); Prothrombin Time 10.3 sec (9.0-12.0)
[2023-03-31 17:33] LABS: ALT 14 U/L (4-34); AST 21 U/L (14-36); African American GFR (CKD) 82 (>60 ml/min/1.73 sqM); Albumin 3.5 g/dL (3.5-5.0); Alkaline Phosphatase 111 U/L (38-126); Anion Gap 5 mmol/L; Blood Urea Nitrogen 15 mg/dL (7-17); Calcium 8.7 mg/dL (8.4-10.2); Carbon Dioxide 27 mmol/L (22-30); Chloride 105 mmol/L (98-107); Glucose 126 mg/dL (74-99); Magnesium 2.2 mg/dL (1.6-2.3); Non-African American GFR(CKD) 71 (>60 ml/min/1.73 sqM); Potassium 4.2 mmol/L (3.5-5.1); Sodium 137 mmol/L (137-145); Total Bilirubin 0.7 mg/dL (0.2-1.3); Total Protein 6.3 g/dL (6.3-8.2)
[2023-03-31 18:15] LABS: Appearance,Urine Clear (Clear); Bacteria,Urine Rare /hpf; Bilirubin,Urine Negative (Negative); Blood,Urine Negative (Negative); Color,Urine Light Yellow; Glucose,Urine (UA) Negative (Negative); Hyaline Casts,Urine 5 /lpf (0-2); Ketones,Urine Negative (Negative); Leukocyte Esterase,Urine Trace (Negative); Mucus,Urine Rare /hpf; Nitrite,Urine Negative (Negative); Protein,Urine Negative (Negative); RBC,Urine 2 /hpf (0-5); Specific Gravity,Urine 1.011 (1.001-1.035); Squamous Epithelial Cell,Urine 1 /hpf (0-4); Urobilinogen,Urine <2.0 mg/dL (<2.0); WBC,Urine 3 /hpf (0-5)
--- NOTE | 2023-03-31 18:16 | XR ---
EXAMINATION TYPE: XR chest 2V DATE OF EXAM: 03/31/2023 COMPARISON: 07/19/2021 INDICATION: Chest pain TECHNIQUE: Frontal and lateral views of the chest are obtained. FINDINGS: The heart size is enlarged. The pulmonary vasculature is normal. The lungs are clear. IMPRESSION: 1. No acute pulmonary process.
--- NOTE | 2023-03-31 18:59 | ED ---
General Adult HPI - General Chief complaint: Syncope Stated complaint: Syncope Time Seen by Provider: 03/31/23 16:37 Source: patient, family Mode of arrival: EMS - History of Present Illness Initial comments: This is a 82-year-old female with a past medical history including hypertension, previous cardiac stent and previous AAA repair presented to emergency department via EMS for a episode of syncope earlier today. It was reported that the patient's family was at the home when noticed that the patient was not answering appropriately and seemed to not respond appropriately. The patient was then brought into the emergency department for further evaluation. It was reported t hat once EMS arrived, the patient did present back to her baseline. The patient stated that she was outside, planting and going in and out of the pool throughout the morning and day without drinking water or eating. The patient stated that she does not remember speaking to her daughter but stated that she remembered being in the embolus. On arrival, the patient denied any acute pain or distress noted and denied any lightheadedness or dizziness. The patient denied any acute pain or complaints presently. - Related Data Home Medications Medication Instructions Recorded Confirmed Fesoterodine Fumarate [Toviaz] 8 mg PO DAILY 02/27/14 03/31/23 Furosemide [Lasix] 20 mg PO DAILY 07/19/21 03/31/23 Atorvastatin [Lipitor] 80 mg PO HS 09/24/21 03/31/23 Clopidogrel [Plavix] 75 mg PO DAILY 09/24/21 03/31/23 Apixaban [Eliquis] 2.5 mg PO BID 03/31/23 03/31/23 Cyanocobalamin (Vitamin B-12) 1,000 mcg PO DAILY 03/31/23 03/31/23 [Vitamin B-12] Docusate [Colace] 100 mg PO BID PRN 03/31/23 03/31/23 Ferrous Sulfate [Feosol] 325 mg PO Q48H 03/31/23 03/31/23 Folic Acid 1 mg PO DAILY 03/31/23 03/31/23 Isosorbide Mononitrate ER [Imdur] 60 mg PO DAILY 03/31/23 03/31/23 Losartan [Cozaar] 50 mg PO DAILY 03/31/23 03/31/23 Metoprolol Tartrate [Lopressor] 25 mg PO BID 03/31/23 03/31/23 Allergies Allergy/AdvReac Type Severity Reaction Status Date / Time No Known Allergies Allergy Verified 03/31/23 18:11 Review of Systems ROS Statement: Those systems with pertinent positive or pertinent negative responses have been documented in the HPI. ROS Other: All systems not noted in ROS Statement are negative. Past Medical History Past Medical History: Hyperlipidemia, Osteoarthritis (OA) Additional Past Medical History / Comment(s): OAB History of Any Multi-Drug Resistant Organisms: MRSA, VRE Date of last positivie culture/infection: 09/09/22 VRE; 2015 MRSA MDRO Source:: VRE-Urine; MRSA Right Leg Past Surgical History: Joint Replacement Additional Past Surgical History / Comment(s): fallopian tube surg., Right & Left hip replaced. AAA Jul 2022 Past Anesthesia/Blood Transfusion Reactions: Postoperative Nausea & Vomiting (PONV) Past Psychological History: No Psychological Hx Reported Smoking Status: Never smoker Past Alcohol Use History: None Reported Past Drug Use History: None Reported - Past Family History Mother Family Medical History: Cancer Additional Family Medical History / Comment(s): lung Father Family Medical History: Cancer Additional Family Medical History / Comment(s): liver General Exam Limitations: no limitations General appearance: alert, in no apparent distress Head exam: Present: atraumatic, normocephalic, normal inspection Eye exam: Present: normal appearance, PERRL Pupils: Present: normal accommodation ENT exam: Present: normal exam, normal oropharynx, mucous membranes moist Neck exam: Present: normal inspection, full ROM Respiratory exam: Present: normal lung sounds bilaterally Cardiovascular Exam: Present: regular rate, normal rhythm, normal heart sounds GI/Abdominal exam: Present: soft, normal bowel sounds Extremities exam: Present: normal inspection, full ROM Back exam: Present: normal inspection, full ROM Neurological exam: Present: alert, oriented X3, CN II-XII intact Psychiatric exam: Present: normal affect, normal mood Skin exam: Present: warm, dry Course Vital Signs 03/31/23 03/31/23 03/31/23 16:39 17:49 18:00 Temperature 98.2 F Pulse Rate 114 H 74 82 Respiratory 18 18 18 Rate Blood Pressure 153/70 155/77 186/87 O2 Sat by Pulse 97 98 Oximetry 03/31/23 03/31/23 03/31/23 19:00 19:29 19:57 Temperature Pulse Rate 71 74 75 Respiratory 18 18 18 Rate Blood Pressure 182/87 167/106 176/81 O2 Sat by Pulse 97 Oximetry 03/31/23 03/31/23 20:13 20:20 Temperature Pulse Rate 85 73 Respiratory 18 20 Rate Blood Pressure 177/88 157/69 O2 Sat by Pulse 97 Oximetry EKG Findings - EKG Comments: EKG Findings:: In EKG was obtained was interpreted by myself showing a rate of 71, NH interval 193, QR nondenominational of 86 and QTC of 411. This EKG showed a normal sinus rhythm without any ST segment elevation or depression noted. While the patient was being watched, the patient did have runs of tachycardia for roughly 10-20 beats. A second EKG was obtained to try to capture this and was interpreted by myself showing a rate of 86, QRS duration of 90, QTC of 432. The second EKG showed an atrial fibrillation without any ST segment elevation or depression noted. Medical Decision Making - Medical Decision Making Was pt. sent in by a medical professional or institution (, PA, SOLAR PROCESS ENGINEER, urgent care, hospital, or [place] [facility]...) When possible be specific @ -No Did you speak to anyone other than the patient for history (EMS, parent, family, police, friend...)? What history was obtained from this source @ -Yes, patient's is at the bedside and did confirm the patient's symptoms and history of present illness Did you review nursing and triage notes (agree or disagree)? Why? @ -I reviewed and agree with nursing and triage notes Were old charts reviewed (outside hosp., previous admission, EMS record, old EKG, old radiological studies, urgent care reports/EKG's, [place] [facility] records)? Report findings @ -No old charts were reviewed Differential Diagnosis (chest pain, altered mental status, abdominal pain women, abdominal pain men, vaginal bleeding, weakness, fever, dyspnea, syncope, headache, dizziness, GI bleed, back pain, seizure, CVA, palpatations, mental health)? @ -vasovagal syncope, ACS, dehydration EKG interpreted by me (3pts min.). @ -As above X-rays interpreted by me (1pt min.). @ -Chest x-ray was obtained and was interpreted by myself showing no acute process. CT interpreted by me (1pt min.). @ -None done U/S interpreted by me (1pt. min.). @ -None done What testing was considered but not performed or refused? (CT, X-rays, U/S, labs)? Why? @ -None What meds were considered but not given or refused? Why? @ -None Did you discuss the management of the patient with other professionals (professionals i.e. , PA, SOLAR PROCESS ENGINEER, lab, RT, psych nurse, social services director, electric range assembler, teacher, geological technical officer, case making machine operator)? Give summary @ -No Was smoking cessation discussed for >3mins.? @ -No Was critical care preformed (if so, how long)? @ -No Were there social determinants of health that impacted care today? How? (Homelessness, low income, unemployed, alcoholism, drug addiction, transportation, low edu. Level, literacy, decrease access to med. care, [place] [facility], rehab)? @ -No Was there de-escalation of care discussed even if they declined (Discuss DNR or withdrawal of care, Hospice)? DNR status @ -No What co-morbidities impacted this encounter? (DM, HTN, Smoking, COPD, CAD, Cancer, CVA, ARF, Chemo, Hep., AIDS, mental health diagnosis, sleep apnea, morbid obesity)? @ -Hypertension, previous cardiac stent, AAA repair Was patient admitted / discharged? Hospital course, mention meds given and route, prescriptions, significant lab abnormalities, going to OR and other pertinent info. @ -The patient was seen and evaluated emergency department. Physical exam, the patient was resting in bed without any acute distress. Vital signs admission were stable. The patient was mildly hypertensive. Laboratory workup, chest x- ray and EKG were obtained. All workup was negative. The patient did receive 1 L no sealing fluid and on reevaluation had no further complaints. The patient did have short, nonsustained runs of tachycardia for possible concerns of atrial fibrillation however after the fluid, the patient had no further symptoms of this. The patient denied of any symptoms in the emergency department including any palpitations, lightheadedness or dizziness. The patient remained stable. The patient likely had an episode of vasovagal syncope from working out in the yard in the heat. The patient was offered to stay in the hospital to be evaluated by cardiology however the patient stated that she would rather be discharged home as she does have a follow-up with her primary care physician this week. The patient and her daughter were agreeable to this plan and all other questions were answered. The patient was discharged home in stable condition. Undiagnosed new problem with uncertain prognosis? @ -No Drug Therapy requiring intensive monitoring for toxicity (Heparin, Nitro, Insulin, Cardizem)? @ -No Were any procedures done? @ -No Diagnosis/symptom? @ -Vasovagal syncope Acute, or Chronic, or Acute on Chronic? @ -Acute Uncomplicated (without systemic symptoms) or Complicated (systemic symptoms)? @ -Uncomplicated Side effects of treatment? @ -No Exacerbation, Progression, or Severe Exacerbation? @ -No Poses a threat to life or bodily function? How? (Chest pain, USA, VT, pneumonia, PE, COPD, DKA, ARF, appy, cholecystitis, CVA, Diverticulitis, Homicidal, Suicidal, threat to staff... and all critical care pts) @ -No - Lab Data Result diagrams: 03/31/23 17:10 03/31/23 17:10 Lab Results 03/31/23 03/31/23 03/31/23 Range/Units 17:10 17:10 17:10 WBC 8.5 (3.8-10.6) k/uL RBC 4.19 (3.80-5.40) m/uL Hgb 11.8 (11.4-16.0) gm/dL Hct 36.5 (34.0-46.0) % MCV 87.1 (80.0-100.0) fL MCH 28.3 (25.0-35.0) pg MCHC 32.5 (31.0-37.0) g/dL RDW 15.7 H (11.5-15.5) % Plt Count 164 (150-450) k/uL MPV 7.3 Neutrophils % 75 % Lymphocytes % 17 % Monocytes % 4 % Eosinophils % 2 % Basophils % 0 % Neutrophils # 6.4 (1.3-7.7) k/uL Lymphocytes # 1.4 (1.0-4.8) k/uL Monocytes # 0.4 (0-1.0) k/uL Eosinophils # 0.2 (0-0.7) k/uL Basophils # 0.0 (0-0.2) k/uL Hypochromasia Slight PT 10.3 (9.0-12.0) sec INR 1.0 (<1.2) APTT 22.3 (22.0-30.0) sec Sodium (137-145) mmol/L Potassium (3.5-5.1) mmol/L Chloride (98-107) mmol/L Carbon Dioxide (22-30) mmol/L Anion Gap mmol/L BUN (7-17) mg/dL Creatinine (0.52-1.04) mg/dL Est GFR (CKD-EPI)AfAm (>60 ml/min/1.73 sqM) Est GFR (CKD-EPI)NonAf (>60 ml/min/1.73 sqM) Glucose (74-99) mg/dL Calcium (8.4-10.2) mg/dL Magnesium (1.6-2.3) mg/dL Total Bilirubin (0.2-1.3) mg/dL AST (14-36) U/L ALT (4-34) U/L Alkaline Phosphatase (38-126) U/L Troponin I (0.000-0.034) ng/mL NT-Pro-B Natriuret Pep pg/mL Total Protein (6.3-8.2) g/dL Albumin (3.5-5.0) g/dL Urine Color Light Yellow Urine Appearance Clear (Clear) Urine pH 7.0 (5.0-8.0) Ur Specific [place] 1.011 (1.001-1.035) Urine Protein Negative (Negative) Urine Glucose (UA) Negative (Negative) Urine Ketones Negative (Negative) Urine Blood Negative (Negative) Urine Nitrite Negative (Negative) Urine Bilirubin Negative (Negative) Urine Urobilinogen <2.0 (<2.0) mg/dL Ur Leukocyte Esterase Trace H (Negative) Urine RBC 2 (0-5) /hpf Urine WBC 3 (0-5) /hpf Ur Squamous Epith Cells 1 (0-4) /hpf Urine Bacteria Rare H (None) /hpf Hyaline Casts 5 H (0-2) /lpf Urine Mucus Rare H (None) /hpf 03/31/23 03/31/23 03/31/23 Range/Units 17:10 17:10 17:10 WBC (3.8-10.6) k/uL RBC (3.80-5.40) m/uL Hgb (11.4-16.0) gm/dL Hct (34.0-46.0) % MCV (80.0-100.0) fL MCH (25.0-35.0) pg MCHC (31.0-37.0) g/dL RDW (11.5-15.5) % Plt Count (150-450) k/uL MPV Neutrophils % % Lymphocytes % % Monocytes % % Eosinophils % % Basophils % % Neutrophils # (1.3-7.7) k/uL Lymphocytes # (1.0-4.8) k/uL Monocytes # (0-1.0) k/uL Eosinophils # (0-0.7) k/uL Basophils # (0-0.2) k/uL Hypochromasia PT (9.0-12.0) sec INR (<1.2) APTT (22.0-30.0) sec Sodium 137 (137-145) mmol/L Potassium 4.2 (3.5-5.1) mmol/L Chloride 105 (98-107) mmol/L Carbon Dioxide 27 (22-30) mmol/L Anion Gap 5 mmol/L BUN 15 (7-17) mg/dL Creatinine 0.79 (0.52-1.04) mg/dL Est GFR (CKD-EPI)AfAm 82 (>60 ml/min/1.73 sqM) Est GFR (CKD-EPI)NonAf 71 (>60 ml/min/1.73 sqM) Glucose 126 H (74-99) mg/dL Calcium 8.7 (8.4-10.2) mg/dL Magnesium 2.2 (1.6-2.3) mg/dL Total Bilirubin 0.7 (0.2-1.3) mg/dL AST 21 (14-36) U/L ALT 14 (4-34) U/L Alkaline Phosphatase 111 (38-126) U/L Troponin I <0.012 (0.000-0.034) ng/mL NT-Pro-B Natriuret Pep 755 pg/mL Total Protein 6.3 (6.3-8.2) g/dL Albumin 3.5 (3.5-5.0) g/dL Urine Color Urine Appearance (Clear) Urine pH (5.0-8.0) Ur Specific [place] (1.001-1.035) Urine Protein (Negative) Urine Glucose (UA) (Negative) Urine Ketones (Negative) Urine Blood (Negative) Urine Nitrite (Negative) Urine Bilirubin (Negative) Urine Urobilinogen (<2.0) mg/dL Ur Leukocyte Esterase (Negative) Urine RBC (0-5) /hpf Urine WBC (0-5) /hpf Ur Squamous Epith Cells (0-4) /hpf Urine Bacteria (None) /hpf Hyaline Casts (0-2) /lpf Urine Mucus (None) /hpf Disposition Clinical Impression: Vasovagal syncope, Dehydration Disposition: HOME SELF-CARE Condition: Stable Instructions (If sedation given, give patient instructions): Syncope in Older Adults (ED) Is patient prescribed a controlled substance at d/c from ED?: No Referrals: Nemesio Marr MD [Primary Care Provider] - 1-2 days Sergey Mcdonald DO [STAFF PHYSICIAN] - 04/06/23 Time of Disposition: 18:45
[2023-03-31] MEDS ORDERED: LABETALOL 5 MG/ML VIAL MDV IVP STA ×2 (19:09→20:08)
[2023-03-31 20:26] VITALS: BP 157/69; PULSE 73; RESP 20
== END 2023-03-31 20:35 | disposition home or self-care (01) ==
LOC: EC 16:35
DX: R55 Syncope and collapse (principal); E86.0 Dehydration; E78.5 Hyperlipidemia, unspecified; M19.90 Unspecified osteoarthritis, unspecified site; Z79.01 Long term (current) use of anticoagulants; Z79.02 Long term (current) use of antithrombotics/antiplatelets; Z79.899 Other long term (current) drug therapy
CPT/HCPCS: 36415; 71046; 80053; 81001; 83735; 83880; 84484; 85025; 85610; 85730; 93005; 96361; 96374; 96376; 99285

== ENCOUNTER → 2023-08-19 | Outpatient (CLI) | payer MEDICARE, BC ==
[2023-08-19 17:19] LABS: Blood Urea Nitrogen 18.9 mg/dL (9.0-27.0); Calcium 9.5 mg/dL (8.7-10.3); Chloride 105 mmol/L (96-109); Chol/HDL Ratio 3.53 Ratio; Glucose 105 mg/dL (70-110); LDL Cholesterol,Calculated 104.3 mg/dL (0.0-131.0); Potassium 4.6 mmol/L (3.5-5.5); Sodium 141 mmol/L (135-145)
== END | disposition home or self-care (01) ==
LOC: LABWHC1 08:08
PROVIDERS: ATTEND Internal Medicine
DX: I10 Essential (primary) hypertension (principal)
CPT/HCPCS: 36415; 80048; 80061

== ENCOUNTER → 2023-08-19 | Outpatient (CLI) | payer MEDICARE, BC ==
--- NOTE | 2023-08-19 09:16 | US ---
EXAMINATION TYPE: US carotid duplex BILAT DATE OF EXAM: 08/19/2023 COMPARISON: NONE CLINICAL INDICATION: Female, 82 years old with history of I65.23 OCCLUSION AND STENOSIS OF BILATERAL CAROTID; Hx HTN, AAA Rupture, and Left sided numbness TECHNIQUE: Carotid duplex ultrasound examination. Indirect Doppler criteria was utilized. FINDINGS: EXAM MEASUREMENTS: RIGHT: Peak Systolic Velocity (PSV) cm/sec ----- Right CCA: 86 ----- Right ICA: 112 ----- Right ECA: 263 ICA/CCA ratio: 1.3 RIGHT: End Diastole cm/sec ----- Right CCA: 19 ----- Right ICA: 25 ----- Right ECA: 22 LEFT: Peak Systolic Velocity (PSV) cm/sec ----- Left CCA: 81 ----- Left ICA: 122 ----- Left ECA: 111 ICA/CCA ratio: 1.5 LEFT: End Diastole cm/sec ----- Left CCA: 11 ----- Left ICA: 33 ----- Left ECA: 14 VERTEBRALS (direction of flow): Right Vertebral: Antegrade Left Vertebral: Antegrade Rhythm: Arrhythmia HACKSAW INSPECTOR NOTES: Patients breathing significantly moved CCA, abnormally high right ECA velocities, calcified plaque noted along bilateral CCAs, and proximal ECA and ICAs. Neither Intimal thickening VS extensive plaque build up bilateral bulbs. Tortuous/Kinked left ICA. IMPRESSION: Director Foundation notes as above regarding vessel morphology and atherosclerotic changes. No hemodynamicall y significant internal carotid artery stenosis on either side by Doppler criteria. Criteria for Assigning % of Stenosis / Diameter reduction (Estimation based on the indirect measurements of the internal carotid artery velocities (ICA PSV). 1. Normal (no stenosis)=ICA PSV < 125 cm/s: ratio < 2.0: ICA EDV<40 cm/s. 2. Less than 50% stenosis=ICA PSV < 125 cm/s: ratio < 2.0: ICA EDV<40 cm/s. 3. 50 to 69% stenosis=ICA PSV of 125 to 230 cm/s: ration 2.0 ? 4.0: ICA EDV 40-100 cm/s. 4. Greater than 70% stenosis to near occlusion= ICA PSV > 230 cm/s: ratio > 4.0: ICA EDV > 100 cm/s. 5. Near occlusion= ICA PSV velocities may be low or undetectable: variable ratio and ICA EDV. 6. Total occlusion=unable to detect flow.
== END | disposition home or self-care (01) ==
LOC: RADUSWWP 07:34
PROVIDERS: ATTEND Internal Medicine
DX: I65.23 Occlusion and stenosis of bilateral carotid arteries (principal); I10 Essential (primary) hypertension
CPT/HCPCS: 93880

== ENCOUNTER → 2023-10-29 | Outpatient (CLI) | payer MEDICARE, BC ==
--- NOTE | 2023-10-29 13:51 | US ---
EXAMINATION TYPE: US abdomen complete DATE OF EXAM: 10/29/2023 COMPARISON: CT 12/19/2022. CLINICAL INDICATION: Female, 83 years old with history of E83.39 OTHER DISORDERS OF PHOSPHORUS METABO LISM; Pain had an aorta rupture x 1 year ago with stent put in. TECHNIQUE: Multiple sonographic images of the abdomen are obtained. FINDINGS: EXAM MEASUREMENTS: Liver Length: 15.9 cm Gallbladder Wall: .2 cm CBD: .8 cm Spleen: 12.2 cm Right Kidney: 10.9 x 3.4 x 4.3 cm Left Kidney: 10.2 x 4.4 x 4.9 cm Pancreas: Tail obscured by overlying bowel gas Liver: Increased attenuation Gallbladder: Small layering calculi. No abnormal distention or wall thickening. No surrounding fluid . Evidence for sonographic Purdy's sign: no CBD: Mildly dilated. Spleen: wnl Right Kidney: No hydronephrosis or masses seen Left Kidney: No hydronephrosis. Small 1.5 cm cortical cyst at the lower pole. Upper IVC: wnl Abd Aorta: Proximal abdominal aorta borderline ectatic at 2.5 cm. Aneurysm mid abdominal aorta up to 6.5 x 6.0 cm. There is appearance of endovascular stent graft. Estimating rincon sac at 7.9 cm on th e 12/19/2022 CT. IMPRESSION: 1. Cholelithiasis. No ancillary findings of acute cholecystitis. 2. Bile duct mildly dilated at 8 mm. This may be acceptable given patient's age. Correlate with alkal ine phosphatase and bilirubin levels. 3. Mid abdominal aortic aneurysm measuring up to 6.5 cm. Endovascular stent graft is noted. [place] sa c estimated at 7.9 cm on the 12/19/2022 CT.
== END | disposition home or self-care (01) ==
LOC: RADUSWWP 07:20
PROVIDERS: ATTEND Internal Medicine
DX: E83.39 Other disorders of phosphorus metabolism (principal); K80.20 Calculus of gallbladder without cholecystitis without obstruction; I71.40 Abdominal aortic aneurysm, without rupture, unspecified; K83.8 Other specified diseases of biliary tract
CPT/HCPCS: 76700

== ENCOUNTER → 2023-11-13 | Outpatient (CLI) | payer MEDICARE, BC ==
[2023-11-13 16:13] LABS: % Iron Saturation 17.25 (12.00-45.00); Albumin 3.9 g/dL (3.8-4.9); BUN/Creat Ratio 19.86 Ratio (12.00-20.00); Blood Urea Nitrogen 13.9 mg/dL (9.0-27.0); Calcium 8.8 mg/dL (8.7-10.3); Carbon Dioxide 23.4 mmol/L (21.6-31.8); Chloride 106 mmol/L (96-109); Glucose 147 mg/dL (70-110); Iron 49 UG/DL (50-170); Phosphorus 3.5 mg/dL (2.4-5.1); Potassium 3.9 mmol/L (3.5-5.5); Sodium 141 mmol/L (135-145); Total Iron Binding Capacity 284 UG/DL (228-460)
[2023-11-13 16:34] LABS: Hepatitis A Antibody IgM Nonreactive; Hepatitis B Core IgM Nonreactive; Hepatitis B Surface Antigen Nonreactive; Hepatitis C IgG Antibody Nonreactive
[2023-11-13 17:05] LABS: Appearance,Urine Clear (Clear); Bilirubin,Urine Negative (Negative); Blood,Urine Small (Negative); Color,Urine Yellow (Yellow); Ketones,Urine Negative (Negative); Nitrite,Urine Negative (Negative); PH, Urine 5.5; Specific Gravity,Urine 1.014 (1.001-1.030); Urobilinogen,Urine 0.2 E.U./DL
[2023-11-13 17:08] LABS: Bacteria,Urine None Seen (None Seen)
[2023-11-13 18:34] LABS: Urine Creatinine 60.6 mg/dL (28.0-217.0)
== END | disposition home or self-care (01) ==
LOC: LABWHC1 08:59
PROVIDERS: ATTEND Internal Medicine
DX: I10 Essential (primary) hypertension (principal); R55 Syncope and collapse
CPT/HCPCS: 36415; 80069; 80074; 81001; 82043; 82570; 82728; 83540; 83550

== ENCOUNTER → 2024-01-15 | Outpatient (CLI) | payer MEDICARE, BC ==
[2024-01-15 07:34] LABS: African American GFR (CKD) 61 (>60 ml/min/1.73 sqM); Blood Urea Nitrogen 27 mg/dL (7-17); Non-African American GFR(CKD) 53 (>60 ml/min/1.73 sqM)
--- NOTE | 2024-01-15 11:03 | CT ---
CT abdomen and pelvis HISTORY: EVAR evaluation. COMPARISON: 12/19/2022. TECHNIQUE: Multiple axial images are obtained to the abdomen and pelvis before and after the uneventf ul administration nonionic IV contrast material. The exam was performed according to the CTA protocol . 3-D postprocessing was performed. FINDINGS: There is moderate to marked cardiomegaly. There is mild groundglass densities in the lung bases possibly secondary to dependent atelectasis. The aortoiliac stent is unchanged in position. The more proximal abdominal aorta aneurysm at the level of the renal arteries is stable. It is 7.0 cm x 7.0 cm in transverse and AP dimension. The more distal focal aneurysmal dilatation of the distal a bdominal aorta is stable measuring 6.1 x 5.7 cm in AP and transverse dimension. The origins of the me senteric and renal arteries remain patent. There is no evidence of aneurysm leak. There is no retroperitoneal adenopathy or hemorrhage. There is mild cholelithiasis. No biliary ductal dilatation There is no focal mass or organomegaly involving liver, pancreas, spleen or adrenal glands. There is no solid renal mass or hydronephrosis. The bowel loops are normal in caliber and mucosal dilatation or obstruction. There is no free intrape ritoneal air or fluid. There is a small anterior abdominal hernia containing fat. Evaluation of the pelvis is limited due to metallic artifact from bilateral hip prostheses. There is a moderate amount of stool within the rectum. No pelvic mass, free fluid, abscess or adenopathy. No focal osseous lesions are seen. IMPRESSION: 1. Stable aortoiliac stent . 2. Stable [place] abdominal aortic aneurysms as described above. There is no evidence of endoleak. 3. Moderate to marked cardiomegaly and bibasilar opacities possibly secondary to dependent atelectasi s. 4. Mild cholelithiasis. 5. Bilateral hip prostheses 6. No acute changes within the abdomen or pelvis.
== END | disposition home or self-care (01) ==
LOC: RADCTMAIN 06:49
PROVIDERS: ATTEND Surgery Vascular Surgery
DX: I71.40 Abdominal aortic aneurysm, without rupture, unspecified (principal); K80.20 Calculus of gallbladder without cholecystitis without obstruction; I51.7 Cardiomegaly; R91.8 Other nonspecific abnormal finding of lung field; Z96.643 Presence of artificial hip joint, bilateral; Z95.828 Presence of other vascular implants and grafts
CPT/HCPCS: 82565; 84520; 36415; 74174; Q9967

== ENCOUNTER 2024-07-04 20:59 | Emergency (ER) | payer MEDICARE, BC ==
[2024-07-04 21:18] VITALS: TEMP 97.8
--- NOTE | 2024-07-04 21:51 | ED ---
General Adult HPI - General Chief complaint: Weakness Stated complaint: Weakness,Cough Time Seen by Provider: 07/04/24 21:23 Source: patient, family Mode of arrival: wheelchair Limitations: no limitations - History of Present Illness Initial comments: Dictation was produced using [employer] dictation software. please excuse any grammatical, word or spelling errors. Chief Complaint: 83-year-old female presents emergency department with malaise, weakness and cough History of Present Illness: Patient is 83-year-old female she has past medical history of A-fib. She states that she is here for 4 days of symptoms of generalized weakness, cough and malaise. Patient denies any obvious sick contacts but she was out with some friends on vacation at [facility]. Patient denies any fever or constitutional symptoms. She states that she feels weak. Patient generally very independent cannot care for self. Son states she seems a bit more malaise than usual. The ROS documented in this emergency department record has been reviewed and confirmed by me. Those systems with pertinent positive or negative responses have been documented in the HPI. All other systems are other negative and/or noncontributory. - Related Data Home Medications Medication Instructions Recorded Confirmed Fesoterodine Fumarate [Toviaz] 8 mg PO DAILY 02/27/14 03/31/23 Furosemide [Lasix] 20 mg PO DAILY 07/19/21 03/31/23 Atorvastatin [Lipitor] 80 mg PO HS 09/24/21 03/31/23 Clopidogrel [Plavix] 75 mg PO DAILY 09/24/21 03/31/23 Apixaban [Eliquis] 2.5 mg PO BID 03/31/23 03/31/23 Cyanocobalamin (Vitamin B-12) 1,000 mcg PO DAILY 03/31/23 03/31/23 [Vitamin B-12] Docusate [Colace] 100 mg PO BID PRN 03/31/23 03/31/23 Ferrous Sulfate [Feosol] 325 mg PO Q48H 03/31/23 03/31/23 Folic Acid 1 mg PO DAILY 03/31/23 03/31/23 Isosorbide Mononitrate ER [Imdur] 60 mg PO DAILY 03/31/23 03/31/23 Losartan [Cozaar] 50 mg PO DAILY 03/31/23 03/31/23 Metoprolol Tartrate [Lopressor] 25 mg PO BID 03/31/23 03/31/23 Previous Rx's Medication Instructions Recorded Azithromycin [Zithromax Z Pack] 1 tab PO DIRECTED #6 tab 07/04/24 Allergies Allergy/AdvReac Type Severity Reaction Status Date / Time No Known Allergies Allergy Verified 03/31/23 18:11 Review of Systems ROS Statement: Those systems with pertinent positive or pertinent negative responses have been documented in the HPI. ROS Other: All systems not noted in ROS Statement are negative. 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 AAA Jul 2022 Past Anesthesia/Blood Transfusion Reactions: Postoperative Nausea & Vomiting (PONV) Past Psychological History: No Psychological Hx Reported Smoking Status: Never smoker Past Alcohol Use History: None Reported Past Drug Use History: None Reported - Past Family History Mother Family Medical History: Cancer Additional Family Medical History / Comment(s): lung Father Family Medical History: Cancer Additional Family Medical History / Comment(s): liver General Exam - General Exam Comments Initial Comments: PHYSICAL EXAM: General Impression: Alert and oriented x3, not in acute distress HEENT: Normocephalic atraumatic, extra-ocular movements intact, pupils equal and reactive to light bilaterally, mucous membranes moist. Cardiovascular: Heart regular rate and rhythm Chest: Able to complete full sentences, no retractions, no tachypnea, clear to auscultation bilaterally Abdomen: abdomen soft, non-tender, non-distended, no organomegaly Musculoskeletal: Pulses present and equal in all extremities, no peripheral edema Motor: no focal deficits noted Neurological: CN II-XII grossly intact, no focal motor or sensory deficits noted Skin: Intact with no visualized rashes Psych: Normal affect and mood Limitations: no limitations Course Vital Signs 07/04/24 07/04/24 07/04/24 21:14 21:29 22:02 Temperature 97.8 F Pulse Rate 67 64 Respiratory 16 13 16 Rate Blood Pressure 127/22 173/84 O2 Sat by Pulse 97 95 Oximetry EKG Findings - EKG Comments: EKG Findings:: My EKG interpretation: Ventricular rate 65, sinus rhythm,. 09/28/1996, QRS 80, QTc 4 5. No [place] prolongation, no QTC prolongation, no ST or T- wave changes noted. Overall, this EKG is unremarkable Medical Decision Making - Medical Decision Making Was pt. sent in by a medical professional or institution (, PA, THERMOSPRAY OPERATOR, urgent care, hospital, or senior living...) When possible be specific @ -No Did you speak to anyone other than the patient for history (EMS, parent, family, police, friend...)? What history was obtained from this source @ -Some history from son as described above Did you review nursing and triage notes (agree or disagree)? Why? @ -I reviewed and agree with nursing and triage notes Were old charts reviewed (outside hosp., previous admission, EMS record, old EKG, old radiological studies, urgent care reports/EKG's, senior living records)? Report findings @ -No old charts were reviewed Differential Diagnosis (chest pain, altered mental status, abdominal pain women, abdominal pain men, vaginal bleeding, musculoskeletal, weakness, fever, dyspnea, syncope, headache, dizziness, GI bleed, back pain, seizure, CVA, palpatations, mental health)? @ -Differential Weakness: Hypoglycemia, shock, sepsis, hyponatremia, anemia, infection, SC, ETOH, adverse medicine reaction, overdose, stroke, this is not meant to be an all-inclusive list. EKG interpreted by me (3pts min.). @ -See above X-rays interpreted by me (1pt min.). @ -Chest x-ray shows slight infiltrate at the left lung base CT interpreted by me (1pt min.). @ -None done U/S interpreted by me (1pt. min.). @ -None done What testing was considered but not performed or refused? (CT, X-rays, U/S, labs)? Why? @ -None What meds were considered but not given or refused? Why? @ -None Was smoking cessation discussed for >3mins.? @ -No Were there social determinants of health that impacted care today? How? (Homelessness, low income, unemployed, alcoholism, drug addiction, transportation, low edu. Level, literacy, decrease access to med. care, group home, rehab)? @ -No Was there de-escalation of care discussed even if they declined (Discuss DNR or withdrawal of care, Hospice)? DNR status @ -No What co-morbidities impacted this encounter? (DM, HTN, Smoking, COPD, CAD, Cancer, CVA, ARF, Chemo, Hep., AIDS, mental health diagnosis, sleep apnea, morbid obesity)? @ -Old age, A-fib Was patient admitted / discharged? Hospital course, mention meds given and route, prescriptions, significant lab abnormalities, going to OR and other pertinent info. @ -83-year-old female multiple comorbidities presents to the emergency department with cough and generalized weakness. Vital signs upon arrival are within acceptable limits. Well-appearing at the bedside. Physical examination is benign. Her evaluation is unremarkable. No leukocytosis. Urinalysis shows dirty catch. Viral testing is positive for COVID-19. X-ray shows slight infiltrate at the left lung base likely COVID-pneumonia. Patient be discharged. There is concern for con commitment bacterial pneumonia. Patient reevaluated bedside 11:48 PM. She is agreeable for discharge. Patient given Z-Mitch. Advised to return to the emergency department for worsening symptoms. Did you discuss the management of the patient with other professionals (professionals i.e. , PA, THERMOSPRAY OPERATOR, lab, RT, psych nurse, social services, mid level business analyst, teacher, supply officer, case monitor)? Give summary @ -No Was critical care preformed (if so, how long)? @ -No Undiagnosed new problem with uncertain prognosis? @ -No Drug Therapy requiring intensive monitoring for toxicity (Heparin, Nitro, Insulin, Cardizem)? @ -No Were any procedures done? @ -No Diagnosis/symptom? Acute, or Chronic, or Acute on Chronic? Uncomplicated (without systemic symptoms) or Complicated (systemic symptoms)? @ -COVID-pneumonia with associated bacterial pneumonia Side effects of treatment? @ -No Exacerbation, Progression, or Severe Exacerbation? @ -No Poses a threat to life or bodily function? How? (Chest pain, USA, SC, pneumonia, PE, COPD, DKA, ARF, appy, cholecystitis, CVA, Diverticulitis, Homicidal, Suicidal, threat to staff... and all critical care pts) @ -No - Lab Data Result diagrams: 07/04/24 21:55 07/04/24 21:55 Lab Results 07/04/24 07/04/24 07/04/24 Range/Units 21:55 21:55 21:55 WBC 7.2 (3.8-10.6) k/uL RBC 4.41 (3.80-5.40) m/uL Hgb 12.9 (11.4-16.0) gm/dL Hct 38.1 (34.0-46.0) % MCV 86.5 (80.0-100.0) fL MCH 29.3 (25.0-35.0) pg MCHC 33.9 (31.0-37.0) g/dL RDW 15.6 H (11.5-15.5) % Plt Count 169 (150-450) k/uL MPV 7.9 Neutrophils % 74 % Lymphocytes % 13 % Monocytes % 5 % Eosinophils % 5 % Basophils % 0 % Neutrophils # 5.3 (1.3-7.7) k/uL Lymphocytes # 1.0 (1.0-4.8) k/uL Monocytes # 0.4 (0-1.0) k/uL Eosinophils # 0.4 (0-0.7) k/uL Basophils # 0.0 (0-0.2) k/uL Sodium 132 L (137-145) mmol/L Potassium 3.9 (3.5-5.1) mmol/L Chloride 100 (98-107) mmol/L Carbon Dioxide 23 (22-30) mmol/L Anion Gap 9 mmol/L BUN 25 H (7-17) mg/dL Creatinine 0.95 (0.52-1.04) mg/dL Est GFR (CKD-EPI)AfAm 65 (>60 ml/min/1.73 sqM) Est GFR (CKD-EPI)NonAf 56 (>60 ml/min/1.73 sqM) Glucose 118 H (74-99) mg/dL Plasma Lactic Acid Tripp (0.7-2.0) mmol/L Calcium 9.4 (8.4-10.2) mg/dL Magnesium 1.9 (1.6-2.3) mg/dL Total Bilirubin 0.9 (0.2-1.3) mg/dL AST 33 (14-36) U/L ALT 21 (4-34) U/L Alkaline Phosphatase 121 (38-126) U/L Total Protein 7.3 (6.3-8.2) g/dL Albumin 4.3 (3.5-5.0) g/dL Urine Color Urine Appearance (Clear) Urine pH (5.0-8.0) Ur Specific Viola (1.001-1.035) Urine Protein (Negative) Urine Glucose (UA) (Negative) Urine Ketones (Negative) Urine Blood (Negative) Urine Nitrite (Negative) Urine Bilirubin (Negative) Urine Urobilinogen (<2.0) mg/dL Ur Leukocyte Esterase (Negative) Urine RBC (0-5) /hpf Urine WBC (0-5) /hpf Ur Squamous Epith Cells (0-4) /hpf Urine Bacteria (None) /hpf Urine Mucus (None) /hpf Influenza Type A (PCR) Not Detected (Not Detectd) Influenza Type B (PCR) Not Detected (Not Detectd) RSV (PCR) Not Detected (Not Detectd) SARS-CoV-2 (PCR) Detected A (Not Detectd) 07/04/24 07/04/24 Range/Units 21:55 23:12 WBC (3.8-10.6) k/uL RBC (3.80-5.40) m/uL Hgb (11.4-16.0) gm/dL Hct (34.0-46.0) % MCV (80.0-100.0) fL MCH (25.0-35.0) pg MCHC (31.0-37.0) g/dL RDW (11.5-15.5) % Plt Count (150-450) k/uL MPV Neutrophils % % Lymphocytes % % Monocytes % % Eosinophils % % Basophils % % Neutrophils # (1.3-7.7) k/uL Lymphocytes # (1.0-4.8) k/uL Monocytes # (0-1.0) k/uL Eosinophils # (0-0.7) k/uL Basophils # (0-0.2) k/uL Sodium (137-145) mmol/L Potassium (3.5-5.1) mmol/L Chloride (98-107) mmol/L Carbon Dioxide (22-30) mmol/L Anion Gap mmol/L BUN (7-17) mg/dL Creatinine (0.52-1.04) mg/dL Est GFR (CKD-EPI)AfAm (>60 ml/min/1.73 sqM) Est GFR (CKD-EPI)NonAf (>60 ml/min/1.73 sqM) Glucose (74-99) mg/dL Plasma Lactic Acid Tripp 1.7 (0.7-2.0) mmol/L Calcium (8.4-10.2) mg/dL Magnesium (1.6-2.3) mg/dL Total Bilirubin (0.2-1.3) mg/dL AST (14-36) U/L ALT (4-34) U/L Alkaline Phosphatase (38-126) U/L Total Protein (6.3-8.2) g/dL Albumin (3.5-5.0) g/dL Urine Color Light Yellow Urine Appearance Cloudy H (Clear) Urine pH 5.5 (5.0-8.0) Ur Specific Viola 1.023 (1.001-1.035) Urine Protein Trace H (Negative) Urine Glucose (UA) Negative (Negative) Urine Ketones Negative (Negative) Urine Blood Small H (Negative) Urine Nitrite Negative (Negative) Urine Bilirubin Negative (Negative) Urine Urobilinogen <2.0 (<2.0) mg/dL Ur Leukocyte Esterase Large H (Negative) Urine RBC 3 (0-5) /hpf Urine WBC 39 H (0-5) /hpf Ur Squamous Epith Cells 46 H (0-4) /hpf Urine Bacteria Rare H (None) /hpf Urine Mucus Rare H (None) /hpf Influenza Type A (PCR) (Not Detectd) Influenza Type B (PCR) (Not Detectd) RSV (PCR) (Not Detectd) SARS-CoV-2 (PCR) (Not Detectd) Disposition Clinical Impression: Pneumonia due to COVID-19 virus, Bacterial pneumonia Disposition: HOME SELF-CARE Condition: Good Instructions (If sedation given, give patient instructions): Bacterial Pneumonia (ED), Coronavirus Disease 2019 (COVID-19) Prescriptions: Azithromycin [Zithromax Z Pack] 1 tab PO DIRECTED #6 tab Is patient prescribed a controlled substance at d/c from ED?: No Referrals: Nemesio Marr DO [Primary Care Provider] - 1-2 days Time of Disposition: 23:50
--- NOTE | 2024-07-04 21:59 | XR ---
EXAMINATION TYPE: XR chest 2V DATE OF EXAM: 07/04/2024 9:55 PM CLINICAL INDICATION:Female, 83 years old with history of cough; PHH COMPARISON: Chest radiographs from 03/31/2023 TECHNIQUE: XR chest 2V Frontal and lateral views of the chest. FINDINGS: Lungs/Pleura: Hazy left lower lung airspace opacities identified. No pleural effusion or pneumothorax . Pulmonary vascularity: Unremarkable. Heart/mediastinum: Cardiomediastinal silhouette is unremarkable. Atherosclerotic calcifications are seen in the aorta. Musculoskeletal: No acute osseous pathology. IMPRESSION: Findings suggestive of mild developing airspace disease in the left lung base. [facility], , 07/04/2024 9:56 PM
[2024-07-04 22:18] LABS: Basophils % (A) 0 %; Eosinophils # (A) 0.4 k/uL (0-0.7); Eosinophils % (A) 5 %; HCT 38.1 % (34.0-46.0); HGB 12.9 gm/dL (11.4-16.0); Lymphocytes % (A) 13 %; MCH 29.3 pg (25.0-35.0); MCHC 33.9 g/dL (31.0-37.0); MCV 86.5 fL (80.0-100.0); Mean Platelet Volume 7.9; Monocytes # (A) 0.4 k/uL (0-1.0); Monocytes % (A) 5 %; Neutrophils # (A) 5.3 k/uL (1.3-7.7); Neutrophils % (A) 74 %; Platelet Count 169 k/uL (150-450); RBC 4.41 m/uL (3.80-5.40); RDW 15.6 % (11.5-15.5); WBC 7.2 k/uL (3.8-10.6)
[2024-07-04 22:57] LABS: ALT 21 U/L (4-34); AST 33 U/L (14-36); African American GFR (CKD) 65 (>60 ml/min/1.73 sqM); Albumin 4.3 g/dL (3.5-5.0); Alkaline Phosphatase 121 U/L (38-126); Anion Gap 9 mmol/L; Blood Urea Nitrogen 25 mg/dL (7-17); Calcium 9.4 mg/dL (8.4-10.2); Carbon Dioxide 23 mmol/L (22-30); Chloride 100 mmol/L (98-107); Glucose 118 mg/dL (74-99); Magnesium 1.9 mg/dL (1.6-2.3); Non-African American GFR(CKD) 56 (>60 ml/min/1.73 sqM); Potassium 3.9 mmol/L (3.5-5.1); Sodium 132 mmol/L (137-145); Total Bilirubin 0.9 mg/dL (0.2-1.3); Total Protein 7.3 g/dL (6.3-8.2)
[2024-07-04 23:38] LABS: Appearance,Urine Cloudy (Clear); Bacteria,Urine Rare /hpf; Bilirubin,Urine Negative (Negative); Blood,Urine Small (Negative); Color,Urine Light Yellow; Glucose,Urine (UA) Negative (Negative); Ketones,Urine Negative (Negative); Leukocyte Esterase,Urine Large (Negative); Mucus,Urine Rare /hpf; Nitrite,Urine Negative (Negative); PH, Urine 5.5 (5.0-8.0); Protein,Urine Trace (Negative); RBC,Urine 3 /hpf (0-5); Specific Gravity,Urine 1.023 (1.001-1.035); Squamous Epithelial Cell,Urine 46 /hpf (0-4); Urobilinogen,Urine <2.0 mg/dL (<2.0); WBC,Urine 39 /hpf (0-5)
[2024-07-05 00:31] VITALS: BP 148/73; PULSE 68; RESP 14
== END 2024-07-05 00:31 | disposition home or self-care (01) ==
LOC: EC 20:59
CPT/HCPCS: 36415; 71046; 80053; 81001; 83605; 83735; 85025; 87086; 87636; 99285

== ENCOUNTER → 2024-09-07 | Outpatient (CLI) | payer MEDICARE, BC ==
--- NOTE | 2024-09-08 08:26 | US ---
EXAMINATION TYPE: US carotid duplex BILAT DATE OF EXAM: 09/07/2024 COMPARISON: NONE CLINICAL INDICATION: Female, 83 years old with history of I65.23 Bilateral carotid artery stenosis; s tenosis Additional History: .... TECHNIQUE: Grayscale, color Doppler and spectral Doppler evaluation of the bilateral carotid systems and vertebral arteries. Indirect Doppler criteria was utilized. FINDINGS: EXAM MEASUREMENTS: RIGHT: Peak Systolic Velocity (PSV) cm/sec ----- Right CCA: 100.9 ----- Right ICA: 102.8 ----- Right ECA: 198.8 ICA/CCA ratio: 1.0 RIGHT: End Diastole cm/sec ----- Right CCA: 20.1 ----- Right ICA: 26 ----- Right ECA: 0 LEFT: Peak Systolic Velocity (PSV) cm/sec ----- Left CCA: 116.6 ----- Left ICA: 134.4 ----- Left ECA: 145.5 ICA/CCA ratio: 1.2 LEFT: End Diastole cm/sec ----- Left CCA: 22.1 ----- Left ICA: 34 ----- Left ECA: 0 VERTEBRALS (direction of flow): Right Vertebral: Antegrade Left Vertebral: Antegrade Rhythm: Normal JUICE STANDARDIZER NOTES: Bilateral plaque visualized. No significant stenosis seen Color Doppler imaging shows patency with blood flow throughout the carotid artery. Spectral waveforms are within normal limits. IMPRESSION: 1. Atheromatous plaquing present bilaterally. There is moderate narrowing between 50 and 69% of the l eft internal carotid artery. 2. Less than 50% narrowing of the right internal carotid artery Criteria for Assigning % of Stenosis / Diameter reduction (Estimation based on the indirect measurements of the internal carotid artery velocities (ICA PSV). 1. Normal (no stenosis)=ICA PSV < 125 cm/s: ratio < 2.0: ICA EDV<40 cm/s. 2. Less than 50% stenosis=ICA PSV < 125 cm/s: ratio < 2.0: ICA EDV<40 cm/s. 3. 50 to 69% stenosis=ICA PSV of 125 to 230 cm/s: ration 2.0 ? 4.0: ICA EDV 40-100 cm/s. 4. Greater than 70% stenosis to near occlusion= ICA PSV > 230 cm/s: ratio > 4.0: ICA EDV > 100 cm/s. 5. Near occlusion= ICA PSV velocities may be low or undetectable: variable ratio and ICA EDV. 6. Total occlusion=unable to detect flow. [facility], , 09/08/2024 8:24 AM
== END | disposition home or self-care (01) ==
LOC: RADUSWWP 16:26
PROVIDERS: ATTEND Internal Medicine
DX: I65.23 Occlusion and stenosis of bilateral carotid arteries (principal); I70.90 Unspecified atherosclerosis
CPT/HCPCS: 93880

== ENCOUNTER → 2025-01-13 | Outpatient (CLI) | payer MEDICARE, BC ==
--- NOTE | 2025-01-13 13:16 | CT ---
EXAMINATION TYPE: CT abdomen pelvis wo con CT DLP: 1098 mGycm, Automated exposure control for dose reduction was used. DATE OF EXAM: 01/13/2025 12:21 PM COMPARISON: CTA abdomen and pelvis 01/15/2024, 12/19/2022 CLINICAL INDICATION:Female, 84 years old with history of I71.40 ABDOMINAL AORTIC ANEURYSM; f/u aneury sm TECHNIQUE: Standard CT of the abdomen and pelvis without IV or oral contrast. Lack of IV or oral co ntrast limits evaluation of solid and hollow organ viscera. Coronal and sagittal reformats were perfo rmed. FINDINGS: LOWER CHEST: Mild bibasilar dependent subsegmental atelectasis. Overall stable bibasilar pulmonary no dules redemonstrated with largest in the visualized right middle lobe measuring up to 9 mm. Largest w ithin the visualized left lower lobe measures up to 1 cm. Additional stable curvilinear nodular opaci ty measuring up to 2.1 cm. Aortic valvular calcifications. Coronary artery calcifications. Cardiomega ly. Mitral annulus calcifications. ABDOMEN LIVER: Unremarkable noncontrast appearance GALLBLADDER AND BILE DUCTS: Cholelithiasis. No biliary ductal dilatation. PANCREAS: Unremarkable noncontrast appearance SPLEEN: Unremarkable noncontrast appearance ADRENAL GLANDS: Unremarkable noncontrast appearance of the right adrenal gland. Stable 1.2 cm left ad renal gland nodule represents a benign adenoma. No follow-up required. KIDNEYS AND URETERS: No evidence of hydronephrosis or renal calculus. Stable exophytic left lower po le 1.4 cm simple cyst. No follow-up recommended. PELVIS BLADDER: Limited evaluation due to streak artifact from hip prosthesis. REPRODUCTIVE: Unremarkable noncontrast appearance. ABDOMEN & PELVIS STOMACH AND BOWEL: Stomach and duodenum are unremarkable. No focal bowel wall thickening or surroundi ng inflammatory changes. No evidence of bowel obstruction. PERITONEUM: No evidence of pneumoperitoneum or free fluid. VASCULATURE: Postsurgical changes from aortobiiliac stent graft. Decrease size of bilobed seneca abdo seema aortic aneurysm with the more superior portion measuring 6.8 x 6.3, previously 7.0 x 7.0 cm. Th e more inferior portion measures 6.3 x 5.4 cm, previously 6.1 x 5.7 cm. Atherosclerotic calcification of the aorta and its branches. MUSCULOSKELETAL: No acute osseous abnormalities. Postsurgical changes from bilateral total hip arthro plasty. This creates streak artifact which limits evaluation. Mild multilevel degenerative disc disea se. LYMPH NODES: No gross evidence for lymphadenopathy. SOFT TISSUE/ABDOMINAL WALL: Small fat filled umbilical hernia. IMPRESSION: 1. Post surgical changes from aortobiiliac stent graft with mildly decreased size of bilobed abdomin al aortic seneca aneurysm. 2. Cholelithiasis. 3. Several stable pulmonary nodules dating back to 2022. Consider further evaluation with PET/CT vers us follow-up CT chest in 6 months. [facility], , 01/13/2025 1:14 PM
== END | disposition home or self-care (01) ==
LOC: RADCTMAIN 12:01
PROVIDERS: ATTEND Surgery Vascular Surgery
DX: K80.20 Calculus of gallbladder without cholecystitis without obstruction (principal); I71.40 Abdominal aortic aneurysm, without rupture, unspecified; R91.8 Other nonspecific abnormal finding of lung field; Z98.890 Other specified postprocedural states
CPT/HCPCS: 74176

== ENCOUNTER → 2025-01-17 | Outpatient (CLI) | payer MEDICARE, BC ==
[2025-01-17 10:21] LABS: Microalbumin Creatinine Ratio <15 mg/g Cr (0-30); Urine Creatinine 77.6 mg/dL (28.0-217.0)
[2025-01-17 15:01] LABS: ALT 23 U/L (8-44); AST 29 U/L (13-35); BUN/Creat Ratio 24.78 Ratio (12.00-20.00); Blood Urea Nitrogen 22.3 mg/dL (9.0-27.0); Calcium 9.3 mg/dL (8.7-10.3); Carbon Dioxide 21.9 mmol/L (21.6-31.8); Chloride 102 mmol/L (96-109); Chol/HDL Ratio 4.17 Ratio; Glucose 110 mg/dL (70-110); LDL Cholesterol,Calculated 112.6 mg/dL (0.0-131.0); Phosphorus 2.8 mg/dL (2.4-5.1); Potassium 4.4 mmol/L (3.5-5.5); Sodium 136 mmol/L (135-145)
== END | disposition home or self-care (01) ==
LOC: LABWHC1 08:02
PROVIDERS: ATTEND Internal Medicine
DX: I1A.0 Resistant hypertension (principal); E78.2 Mixed hyperlipidemia; N39.0 Urinary tract infection, site not specified; R80.9 Proteinuria, unspecified
CPT/HCPCS: 36415; 80061; 80069; 82043; 82570; 84450; 84460